=== PATIENT | female | born 1970 | race Caucasian/White ===

== ENCOUNTER 2016-12-21 23:51 | Observation (INO) | payer MEDICARE ==
[2016-12-22] MEDS ORDERED: ACETAMINOPHEN-1 EAC1 PO (15:58)
[2016-12-22] MEDS ORDERED: BACLOFEN10 MG PO (15:58)
[2016-12-22] MEDS ORDERED: BUSPIRONE HCL5 MG PO (15:59)
[2016-12-22] MEDS ORDERED: ZYRTEC10 MG PO (15:59)
[2016-12-22] MEDS ORDERED: CIPRO500 MG PO (16:00)
[2016-12-22] MEDS ORDERED: MIRTAZAPINE45 MG PO (16:01)
[2016-12-22] MEDS ORDERED: NASONEX17 GM NS (16:01)
[2016-12-22] MEDS ORDERED: MECLIZINE HCL25 MG PO (16:01)
[2016-12-22] MEDS ORDERED: KLONOPIN1 MG PO (16:01)
[2016-12-22] MEDS ORDERED: SINGULAIR10 MG PO (16:02)
[2016-12-22] MEDS ORDERED: PHENERGAN25 M1 PO (16:02)
[2016-12-22] MEDS ORDERED: PROPRANOLOL HCL20 MG PO (16:02)
[2016-12-22] MEDS ORDERED: PROTONIX40 MG PO (16:02)
[2016-12-22] MEDS ORDERED: IMITREX100 MG PO (16:03)
[2016-12-22] MEDS ORDERED: VIIBRYD20 MG PO (16:04)
[2016-12-22] MEDS ORDERED: ARMOUR THYROID90 MG PO (16:04)
[2016-12-22] MEDS ORDERED: TOPAMAX25 MG PO (16:06)
[2016-12-22] MEDS ORDERED: PRAVACHOL40 MG PO (16:06)
[2016-12-22] MEDS ORDERED: ASPIRIN EC81 MG PO (16:07)
[2016-12-22] MEDS ORDERED: NITROQUICK0.4 MG SL (16:07)
== END 2016-12-22 16:30 | disposition home or self-care (01) ==
LOC: MED 23:51
PROVIDERS: ADMIT Internal Medicine
DX: R07.9 Chest pain, unspecified (principal); I10 Essential (primary) hypertension; M06.9 Rheumatoid arthritis, unspecified; M79.7 Fibromyalgia; E03.9 Hypothyroidism, unspecified; Z79.899 Other long term (current) drug therapy; Z88.0 Allergy status to penicillin; Z88.1 Allergy status to other antibiotic agents; Z90.49 Acquired absence of other specified parts of digestive tract; Z79.82 Long term (current) use of aspirin; Z82.49 Family history of ischemic heart disease and other diseases of the circulatory system; Z83.3 Family history of diabetes mellitus
CPT/HCPCS: 78452; 93017; 93306; 96372; G0378; J1650; J2785